=== PATIENT | female | born 1990 | race Caucasian/White ===

== ENCOUNTER 2018-12-03 13:08 | Inpatient (IN) | payer MEDICAID ==
[~2018-12-03 13:08] MED LIST: ROCURONIUM 50 MG INJ
[2018-12-03] MEDS ORDERED: MAGNESIUM SULFATE 4 GM/100 ML 100 ML (13:45)
[2018-12-03] MEDS: LACTATED RINGER'S 1,000 ML IV ×2 (13:56→21:50)
[2018-12-03 13:57] LABS: ADD MAN DIFF? NO
[2018-12-03] MEDS: MAGNESIUM SULFATE 4 GM/100 ML 100 ML IVPB (13:59)
[2018-12-03] MEDS ORDERED: MISOPROSTOL 200 MCG TAB PR ×2 (14:00→17:00)
[2018-12-03] MEDS ORDERED: IBUPROFEN 600 MG TAB PO (14:00)
[2018-12-03] MEDS ORDERED: OXYTOCIN 30 UNITS/LR 500 ML IV ×3 (14:00→17:00)
[2018-12-03] MEDS ORDERED: METHYLERGONOVINE 0.2 MG INJ IM ×2 (14:00→17:00)
[2018-12-03] MEDS ORDERED: CARBOPROST 250 MCG INJ IM ×2 (14:00→17:00)
[2018-12-03] MEDS ORDERED: MAGNESIUM SULFATE 4 GM/100 ML 100 ML IVPB (14:00)
[2018-12-03] MEDS ORDERED: LIDOCAINE 1% (MPF) 30 ML INJ INJ (14:00)
[2018-12-03] MEDS ORDERED: BUTORPHANOL 2 MG INJ IV (14:00)
[2018-12-03 14:01] LABS: WHITE BLOOD COUNT 7.4 10^3/ul (4.8-10.8)
[2018-12-03 14:01] LABS: BASOPHILS % 0.5 % (0.0-2.0); EOSINOPHILS # 0.1 10^3/ul (0.0-0.5); EOSINOPHILS % 0.8 % (0.0-7.0); HEMATOCRIT 40.1 % (37.0-47.0); HEMOGLOBIN 14.2 g/dl (12.0-16.0); LYMPHOCYTES # 2.2 10^3/ul (0.8-2.9); LYMPHOCYTES % 30.1 % (15.0-51.0); MEAN CORPUSCULAR HEMOGLOBIN 32.3 pg (29.0-33.0); MEAN CORPUSCULAR HGB CONC 35.4 g/dl (32.0-37.0); MEAN CORPUSCULAR VOLUME 91.3 fl (82.0-101.0); MEAN PLATELET VOLUME 11.1 fl (7.4-10.4); MONOCYTE # 0.4 10^3/ul (0.3-0.9); NEUTROPHIL # 4.7 10^3/ul (1.6-7.5); NEUTROPHILS % 63.2 % (39.0-77.0); PLATELET COUNT 170 10^3/UL (140-415); RED BLOOD COUNT 4.39 10^6/ul (4.20-5.40); RED CELL DISTRIBUTION WIDTH 12.5 % (11.5-14.5)
[2018-12-03] MEDS: MAGNESIUM SULFATE 20 GM/500 ML 500 ML IV ×2 (14:12→22:29)
[2018-12-03 14:14] LABS: ADD UMIC YES; UR ASCORBIC ACID NEGATIVE (NEGATIVE); UR BACTERIA FEW /HPF (NONE SEEN); UR BILIRUBIN (Dip) NEGATIVE (NEGATIVE); UR BLOOD (Dip) 1+ mg/dL (NEGATIVE); UR CLARITY SLIGHTLY CLOUDY (CLEAR); UR COLOR YELLOW (YELLOW); UR GLUCOSE (Dip) NEGATIVE (NEGATIVE); UR KETONES (Dip) NEGATIVE (NEGATIVE); UR LEUKOCYTE ESTERASE (Dip) NEGATIVE Leu/ul (NEGATIVE); UR MUCUS FEW /HPF (NONE SEEN); UR NITRITE (Dip) NEGATIVE (NEGATIVE); UR RBC 1 /HPF (0-5); UR SPECIFIC GRAVITY (Dip) 1.026 (1.003-1.030); UR SQUAMOUS EPITHELIAL CELL FEW /HPF (FEW); UR TOTAL PROTEIN (Dip) 3+ mg/dl (NEGATIVE); UR UROBILINOGEN (Dip) NEGATIVE (NEGATIVE); UR WBC 4 /HPF (0-5)
[2018-12-03 14:18] LABS: ALANINE AMINOTRANSFERASE 21 IU/L (13-69); ALBUMIN 2.9 g/dl (3.3-4.9); ALBUMIN/GLOBULIN RATIO 0.96; ALKALINE PHOSPHATASE 220 IU/L (42-121); ANION GAP 9 (5-13); ASPARTATE AMINO TRANSFERASE 32 IU/L (15-46); BILIRUBIN,INDIRECT 0.2 mg/dl (0-1.1); BILIRUBIN,TOTAL 0.2 mg/dl (0.2-1.3); BLOOD UREA NITROGEN 21 mg/dl (7-20); CALCIUM 9.6 mg/dl (8.4-10.2); CARBON DIOXIDE 20 mmol/L (21-31); CHLORIDE 108 mmol/L (97-110); Estimated GFR > 60 mL/min (>60); GLUCOSE 82 mg/dl (70-220); POTASSIUM 4.5 mmol/L (3.5-5.1); SODIUM 137 mmol/L (135-144); TOTAL PROTEIN 5.9 g/dl (6.1-8.1); URIC ACID 7.7 mg/dl (3.1-7.9)
[2018-12-03 14:20] LABS: INR 0.76; PARTIAL THROMBOPLASTIN TIME 26.9 Sec (23.0-35.0); PROTIME 10.8 Sec (11.9-14.9); PT RATIO 0.8
[2018-12-03 16:49] LABS: RAPID PLASMA REAGIN NONREACTIVE (NR)
[2018-12-03] MEDS ORDERED: CEFAZOLIN 2 GM/50 ML (PMX) 50 ML IVPB (17:00)
[2018-12-03] MEDS ORDERED: ONDANSETRON 4 MG INJ IV (18:00)
[2018-12-03] MEDS ORDERED: DIPHENHYDRAMINE 50 MG INJ IV (18:00)
[2018-12-03] MEDS ORDERED: NALOXONE (0.4 MG/ML) INJ IV (18:00)
[2018-12-03] MEDS ORDERED: ZOLPIDEM 5 MG TAB PO (18:00)
[2018-12-03] MEDS ORDERED: HYDROmorphONE 0.5 MG/0.5 ML SYG IV ×2 (18:00)
[2018-12-03] MEDS ORDERED: KETOROLAC 30 MG INJ IV (18:00)
[2018-12-03] MEDS: LABETALOL HCL 20MG INJ IV (20:00)
[2018-12-03] MEDS: CITRIC ACID/NA CITRATE 30 ML CUP PO (20:05)
[2018-12-03] MEDS: FAMOTIDINE 20 MG INJ IV (20:06)
[2018-12-03] MEDS: METOCLOPRAMIDE 10 MG INJ IV (20:06)
[2018-12-03] MEDS ORDERED: morphine SULFATE/PF (10 MG/10 ML) INJ (20:40)
[2018-12-03] MEDS ORDERED: PHENYLephrine (100 MCG/ML) 5ML SYG (20:41)
[2018-12-03] MEDS ORDERED: ETOMIDATE 20 MG INJ (20:57)
[2018-12-03] MEDS ORDERED: SUCCINYLCHOLINE CHLORIDE 100 MG/5 ML SYG IV (20:57)
[2018-12-03] MEDS ORDERED: LIDOCAINE 1% (MDV) 20 ML INJ (20:57)
[2018-12-03] MEDS ORDERED: FENTAnyl 50 MCG/ML VIAL (20:59)
[2018-12-03] MEDS ORDERED: MIDAZOLAM 1 MG/ML 2 ML INJ (20:59)
[2018-12-03] MEDS ORDERED: DEXAMETHASONE 4 MG/ML 1 ML INJ (21:12)
[2018-12-03] MEDS ORDERED: SUGAMMADEX SODIUM 200 MG/2 ML VIAL IV (21:31)
[2018-12-03 21:46] LABS: CBV Base Excess -9.8 mmol/L; CBV COHb 0.3 %; CBV Oxygen Sat 22.4 mmHG; CBV Total Hemglobin 15.8 g/dl; Cord Blood Venous AADO2 75.9 mmHg; Cord Blood Venous pO2 14.6 mmHG (15.0-45.0); Fraction OxyHgb Cord Venous 21.9 %; MODE ROOM AIR; MetHgb Cord Venous 1.8 %; Sample Type CBV; Site CORD
[2018-12-03 21:49] LABS: AADO2 Cord Arterial 70.7 mmHg; CBA Base Excess -9.3 mmol/L; CBA COHb 0.3 %; CBA Total Hemglobin 15.5 g/dl; Cord Blood Arterial pO2 10.8 mmHG (15.0-45.0); Fraction OxyHgb Cord Arterial 8.9 %; MODE ROOM AIR; MetHgb Cord Arterial 1.9 %; Sample Type CBA; Site CORD
[2018-12-03] MEDS ORDERED: FLUMAZENIL 0.5 MG INJ (21:52)
[2018-12-03] MEDS ORDERED: LABETALOL 200 MG TAB (22:39)
[2018-12-03] MEDS: LABETALOL 200 MG TAB PO (22:48)
[2018-12-04 00:24] LABS: HEPATITIS B SURFACE ANTIGEN NEGATIVE (NEGATIVE)
[2018-12-04] MEDS: OXYTOCIN 30 UNITS/LR 500 ML IV ×4 (01:19→08:04)
[2018-12-04] MEDS: DEXTROSE 5%-LR 1,000 ML IV (01:33)
[2018-12-04] MEDS ORDERED: MISOPROSTOL 200 MCG TAB PR (02:00)
[2018-12-04] MEDS ORDERED: METHYLERGONOVINE 0.2 MG INJ IM (02:00)
[2018-12-04] MEDS: LABETALOL 200 MG TAB PO ×3 (02:00→17:46)
[2018-12-04] MEDS ORDERED: CARBOPROST 250 MCG INJ IM (02:00)
[2018-12-04] MEDS ORDERED: METHYLERGONOVINE 0.2 MG TAB PO (02:00)
[2018-12-04] MEDS ORDERED: OXYTOCIN 30 UNITS/LR 500 ML IV (02:00)
[2018-12-04] MEDS: LACTATED RINGER'S 1,000 ML IV ×2 (05:50→17:52)
[2018-12-04] MEDS: MAGNESIUM SULFATE 20 GM/500 ML 500 ML IV ×2 (07:53→18:29)
[2018-12-04 08:20] LABS: ADD MAN DIFF? NO
[2018-12-04 08:33] LABS: WHITE BLOOD COUNT 17.5 10^3/ul (4.8-10.8)
[2018-12-04 08:33] LABS: BASOPHILS % 0.1 % (0.0-2.0); HEMOGLOBIN 9.6 g/dl (12.0-16.0); LYMPHOCYTES # 1.6 10^3/ul (0.8-2.9); LYMPHOCYTES % 9.4 % (15.0-51.0); MEAN CORPUSCULAR HGB CONC 35.6 g/dl (32.0-37.0); MEAN PLATELET VOLUME 11.2 fl (7.4-10.4); MONOCYTE # 0.7 10^3/ul (0.3-0.9); MONOCYTES % 4.1 % (0.0-11.0); NEUTROPHILS % 85.8 % (39.0-77.0); PLATELET COUNT 103 10^3/UL (140-415); RED CELL DISTRIBUTION WIDTH 12.8 % (11.5-14.5)
[2018-12-04 08:47] LABS: MAGNESIUM 6.8 mg/dl (1.7-2.5)
[2018-12-04] MEDS: SENNA/DOCUSATE NA (8.6MG/50MG) TAB PO ×2 (10:33→21:34)
[2018-12-04 12:31] LABS: MAGNESIUM 5.7 mg/dl (1.7-2.5)
[2018-12-04] MEDS: LANOLIN HPA 1 PKT TOP (13:23)
[2018-12-04 18:40] LABS: MAGNESIUM 6.3 mg/dl (1.7-2.5)
[2018-12-04] MEDS: IBUPROFEN 800 MG TAB PO (22:30)
[2018-12-05] MEDS: IBUPROFEN 800 MG TAB PO ×3 (06:08→21:59)
[2018-12-05] MEDS: DIPHTH/TET/ACEL PERTUSS (ADULT) 0.5 ML VIAL IM* (11:00)
[2018-12-05] MEDS: HYDROCODONE/APAP (5/325) TAB NGT (11:31)
[2018-12-05] MEDS: SENNA/DOCUSATE NA (8.6MG/50MG) TAB PO ×2 (11:32→21:59)
[2018-12-05] MEDS ORDERED: HYDROCODONE/APAP (5/325) TAB PO (12:00)
[2018-12-05] MEDS: HYDROCODONE/APAP (5/325) TAB PO ×3 (12:00→21:59)
[2018-12-05] MEDS: LABETALOL 200 MG TAB PO ×2 (12:47→21:58)
[2018-12-05] MEDS: LACTATED RINGER'S 1,000 ML IV (13:50)
[2018-12-05] MEDS ORDERED: HYDROCODONE/APAP (5/325) TAB GTB (14:00)
[2018-12-05] MEDS: DEXTROSE 5%-LR 1,000 ML IV (17:33)
[2018-12-06] MEDS: LABETALOL 200 MG TAB PO ×3 (06:46→22:06)
[2018-12-06] MEDS: IBUPROFEN 800 MG TAB PO ×3 (06:47→22:07)
[2018-12-06] MEDS: HYDROCODONE/APAP (5/325) TAB PO ×3 (06:47→22:08)
[2018-12-06] MEDS: SENNA/DOCUSATE NA (8.6MG/50MG) TAB PO ×2 (09:21→21:30)
[2018-12-07] MEDS: IBUPROFEN 800 MG TAB PO ×2 (05:55→13:46)
[2018-12-07] MEDS: HYDROCODONE/APAP (5/325) TAB PO ×4 (05:55→16:02)
[2018-12-07] MEDS: LABETALOL 200 MG TAB PO ×2 (05:56→13:47)
[2018-12-07] MEDS: SENNA/DOCUSATE NA (8.6MG/50MG) TAB PO (08:51)
[2018-12-07] MEDS: MEASLES,MUMPS,RUBELLA VACCINE INJ SC* (09:00)
[2018-12-07] MEDS: DIPHTH/TET/ACEL PERTUSS (ADULT) 0.5 ML VIAL IM* (11:38)
== END 2018-12-07 16:30 | disposition home or self-care (01) | DRG 788 ==
LOC: OBT 13:08 → PP1 12-04 00:18 → L-D 13:09 → OBT 13:30 → L-D 13:30
PROVIDERS: Obstetrics & Gynecology
PROC: 10D00Z1 Extraction of Products of Conception, Low, Open Approach (ICD-10-PCS; principal; 2018-12-04)
DX: O14.14 Severe pre-eclampsia complicating childbirth (principal); O45.93 Premature separation of placenta, unspecified, third trimester; O76 Abnormality in fetal heart rate and rhythm complicating labor and delivery; R21 Rash and other nonspecific skin eruption; Z3A.37 37 weeks gestation of pregnancy; Z37.0 Single live birth
CPT/HCPCS: 36600; 76815; 76818; 80053; 81001; 82803; 83735; 84560; 85025; 85384; 85610; 85730; 86592; 86850; 86900; 86901; 86920; 87340; 88307; 90686; 90715; 99464

== ENCOUNTER 2018-12-08 19:46 | Inpatient (IN) | payer MEDICAID ==
[2018-12-08 20:04] LABS: ADD MAN DIFF? NO
[2018-12-08] MEDS: LABETALOL HCL 20MG INJ IV (20:07)
[2018-12-08 20:09] LABS: BASOPHIL # 0.1 10^3/ul (0.0-0.1); BASOPHILS % 0.6 % (0.0-2.0); EOSINOPHILS # 0.1 10^3/ul (0.0-0.5); EOSINOPHILS % 1.3 % (0.0-7.0); HEMATOCRIT 27.1 % (37.0-47.0); HEMOGLOBIN 9.1 g/dl (12.0-16.0); LYMPHOCYTES # 2.5 10^3/ul (0.8-2.9); LYMPHOCYTES % 24.8 % (15.0-51.0); MEAN CORPUSCULAR HEMOGLOBIN 32.3 pg (29.0-33.0); MEAN CORPUSCULAR HGB CONC 33.6 g/dl (32.0-37.0); MEAN CORPUSCULAR VOLUME 96.1 fl (82.0-101.0); MEAN PLATELET VOLUME 9.1 fl (7.4-10.4); MONOCYTE # 0.5 10^3/ul (0.3-0.9); MONOCYTES % 4.6 % (0.0-11.0); NEUTROPHIL # 6.7 10^3/ul (1.6-7.5); NEUTROPHILS % 67.1 % (39.0-77.0); PLATELET COUNT 235 10^3/UL (140-415); RED BLOOD COUNT 2.82 10^6/ul (4.20-5.40)
[2018-12-08] MEDS: MAGNESIUM SULFATE 4 GM/100 ML 100 ML IVPB (20:11)
[2018-12-08 20:14] LABS: ADD UMIC YES; UR ASCORBIC ACID NEGATIVE (NEGATIVE); UR BACTERIA FEW /HPF (NONE SEEN); UR BILIRUBIN (Dip) NEGATIVE (NEGATIVE); UR BLOOD (Dip) 3+ mg/dL (NEGATIVE); UR CLARITY CLEAR (CLEAR); UR COLOR STRAW (YELLOW); UR GLUCOSE (Dip) NEGATIVE (NEGATIVE); UR KETONES (Dip) NEGATIVE (NEGATIVE); UR LEUKOCYTE ESTERASE (Dip) TRACE Leu/ul (NEGATIVE); UR NITRITE (Dip) NEGATIVE (NEGATIVE); UR RBC 53 /HPF (0-5); UR SPECIFIC GRAVITY (Dip) 1.009 (1.003-1.030); UR TOTAL PROTEIN (Dip) 2+ mg/dl (NEGATIVE); UR UROBILINOGEN (Dip) NEGATIVE (NEGATIVE); UR WBC 14 /HPF (0-5)
[2018-12-08 20:25] LABS: ALANINE AMINOTRANSFERASE 39 IU/L (13-69); ALBUMIN/GLOBULIN RATIO 1.15; ALKALINE PHOSPHATASE 119 IU/L (42-121); ANION GAP 5 (5-13); ASPARTATE AMINO TRANSFERASE 41 IU/L (15-46); BILIRUBIN,INDIRECT 0.2 mg/dl (0-1.1); BILIRUBIN,TOTAL 0.2 mg/dl (0.2-1.3); BLOOD UREA NITROGEN 10 mg/dl (7-20); CALCIUM 8.7 mg/dl (8.4-10.2); CARBON DIOXIDE 24 mmol/L (21-31); CHLORIDE 109 mmol/L (97-110); CREATININE 0.51 mg/dl (0.44-1.00); Estimated GFR > 60 mL/min (>60); GLUCOSE 81 mg/dl (70-220); LIPASE 41 U/L (23-300); POTASSIUM 3.9 mmol/L (3.5-5.1); SODIUM 138 mmol/L (135-144); TOTAL PROTEIN 5.6 g/dl (6.1-8.1)
[2018-12-08] MEDS ORDERED: ACETAMINOPHEN 325 MG TAB PO ×2 (20:30→23:00)
[2018-12-08] MEDS ORDERED: ONDANSETRON 4 MG INJ IV (20:30)
[2018-12-08] MEDS ORDERED: CA GLUCONATE (GM) 10% 10ML INJ IV (23:00)
[2018-12-08] MEDS: MAGNESIUM SULFATE 4 GM/100 ML 100 ML IV (23:08)
[2018-12-08 23:10] LABS: URIC ACID 6.1 mg/dl (3.1-7.9)
[2018-12-08] MEDS: MAGNESIUM SULFATE 20 GM/500 ML 500 ML IV (23:46)
[2018-12-08] MEDS: LABETALOL 200 MG TAB PO (23:49)
[2018-12-08] MEDS: LACTATED RINGER'S 1,000 ML IV (23:50)
[2018-12-08] MEDS: HYDROCODONE/APAP (5/325) TAB PO (23:50)
[2018-12-09] MEDS: LABETALOL 200 MG TAB PO ×3 (06:13→21:54)
[2018-12-09 06:54] LABS: MAGNESIUM 4.4 mg/dl (1.7-2.5)
[2018-12-09] MEDS: LACTATED RINGER'S 1,000 ML IV ×2 (07:03→16:55)
[2018-12-09] MEDS: PRENATAL VITAMIN PO (08:58)
[2018-12-09] MEDS: DOCUSATE SODIUM 100 MG CAP PO (08:58)
[2018-12-09] MEDS: FERROUS SULFATE (EC) 325 MG TAB PO ×2 (08:58→21:54)
[2018-12-09 12:40] LABS: MAGNESIUM 4.1 mg/dl (1.7-2.5)
[2018-12-09] MEDS: CYANOCOBALAMIN 1000 MCG INJ IM (16:59)
[2018-12-09 18:51] LABS: MAGNESIUM 4.4 mg/dl (1.7-2.5)
[2018-12-09] MEDS: MAGNESIUM SULFATE 20 GM/500 ML 500 ML IV (19:34)
[2018-12-10] MEDS: LACTATED RINGER'S 1,000 ML IV (04:14)
[2018-12-10] MEDS: LABETALOL 200 MG TAB PO (06:09)
[2018-12-10] MEDS: PRENATAL VITAMIN PO (09:01)
[2018-12-10] MEDS: FERROUS SULFATE (EC) 325 MG TAB PO (09:01)
[2018-12-10] MEDS: DOCUSATE SODIUM 100 MG CAP PO (09:02)
== END 2018-12-10 12:20 | disposition home or self-care (01) | DRG 776 ==
LOC: E/R 19:46 → L-D 20:23
DX: O14.95 Unspecified pre-eclampsia, complicating the puerperium (principal)
CPT/HCPCS: 36415; 80053; 81001; 83690; 83735; 84560; 85025; 96374; 96375; 99291-25